=== PATIENT | male | born 1940 | race Caucasian/White ===

== ENCOUNTER → 2018-08-22 18:59 | Outpatient (REF) | payer MEDICARE, OTHER, SELFPAY ==
[2018-08-22 20:03] LABS: Alanine Aminotransferase 29 IU/L (21-72); Albumin 4.4 g/dL (3.5-5.0); Albumin Globulin Ratio 1.5 (1.0-2.8); Alkaline Phosphatase 61 U/L (38-126); Aspartate Aminotransferase 20 IU/L (17-59); Bilirubin Total 0.7 mg/dL (0.2-1.3); Blood Urea Nitrogen 17 mg/dL (9-20); Calcium 9.5 mg/dL (8.4-10.2); Carbon Dioxide 28 mmol/L (22-32); Estimated Glomerular Filt Rate > 60.0 mL/min (>60); Globulin 2.9 g/dL (1.7-4.1); Glucose 91 mg/dL (80-110); HEMOLYSIS < 15 (0-50); Total Protein 7.3 g/dL (6.3-8.2)
[2018-08-22 20:10] LABS: Add Manual Diff / Slide Review NO; Basophils Absolute Auto 0 /uL (0-100); Basophils Percent Auto 0.4 % (0-2); Eosinophils Absolute Auto 0 /uL (0-450); Eosinophils Percent Auto 1.2 % (2-4); Hematocrit 46.7 % (41-53); Hemoglobin 16.2 g/dL (13.5-17.5); Lymphocytes Absolute Auto 1100 /uL (1100-4500); Lymphocytes Percent Auto 33.8 % (25-40); Mean Corpuscular HGB Conc 34.8 % (30-36); Mean Corpuscular Hemoglobin 30.6 PG (26-34); Mean Corpuscular Volume 88.1 fL (80-100); Monocytes Absolute Auto 300 /uL (0-900); Monocytes Percent Auto 8.5 % (3-14); Neutrophils Absolute Auto 1800 /uL (1500-7000); Neutrophils Percent Auto 56.1 % (50-75); Platelet Count 147 X10^3/uL (150-400); Red Cell Distribution Width 14.4 % (11.6-14.8); White Blood Cell Count 3.2 X10^3/uL (4.5-11.0)
[2018-08-22 20:12] LABS: Chloride 100 mmol/L (98-107); Sodium 139 mmol/L (137-145)
[2018-08-22 20:36] LABS: Thyroid Stimulating Hormone 2.19 uIU/mL (0.47-4.68)
== END ==
LOC: LAB 18:59
PROVIDERS: Family Provider Family Medicine Geriatric Medicine; PCP Family Medicine Geriatric Medicine; Visit Provider Family Medicine Geriatric Medicine
DX: R53.82 Chronic fatigue, unspecified (principal)
CPT/HCPCS: 36415; 80053; 84443; 85025

== ENCOUNTER → 2018-12-01 09:51 | Outpatient (CLI) | payer MEDICARE, OTHER, SELFPAY ==
--- NOTE | 2018-12-01 10:45 | PM.TREADMILL ---
Cardiac Stress Test Report Referral & Results Date Patient Seen: 12/01/18 Requesting provider: Vickie Boston Indication: Dyspnea Rest ECG: Frequent PACs and PVCs Procedure Note: Today following both written and verbal informed consent, the patient was exercised according to a standard [facility] protocol. The patient exercised for a total of 9 minutes 0 seconds achieving a maximum heart rate of 127. Patient's maximum systolic blood pressure was 200. This was an estimated 10.1 MET's. Patient had frequent PACs and PVCs including ventricular couplets and triplets and runs lasting 5-10 seconds of ventricular bigeminy. These persisted throughout the monitoring period. They were asymptomatic. There was no obvious evidence of ischemia. There was some nonspecific ST-T segment flattening in lateral leads in early recovery the persisted. Functional aerobic impairment was off the scale but rate his exercise capacity to be equal that of an active 59-year-old Impression: Significant dysrhythmia as above. Suggest echocardiography. Patient did hold his beta-elizabeth for this test which may of had an influence on his dysrhythmia No clear evidence of ischemia. Nonspecific changes as above. Given his excellent exercise capacity overall this is a low risk study. Consideration for repeating this with perfusion imaging could be made if clinical concern warrants Please note: Actual ECG tracings can be found in the PACS system.
== END ==
PROVIDERS: Family Provider Family Medicine Geriatric Medicine; PCP Family Medicine Geriatric Medicine; Visit Provider Family Medicine Geriatric Medicine
DX: R06.00 Dyspnea, unspecified (principal); I49.3 Ventricular premature depolarization; I49.1 Atrial premature depolarization
CPT/HCPCS: 93016; 93017; 93018

== ENCOUNTER → 2020-08-28 13:25 | Outpatient (CLI) | payer MEDICARE, OTHER, SELFPAY ==
[2020-08-28 14:11] LABS: UR Morphine/Opiate cutoff 300 Negative (Negative); Ur Creatinine Normal (Normal); Ur Specific Gravity Normal (Normal); Urine Amphetamines Negative (Negative); Urine Barbiturates Negative (Negative); Urine Benzodiazepines Negative (Negative); Urine Cocaine Negative (Negative); Urine MDMA Negative (Negative); Urine Methadone Negative (Negative); Urine Methamphetamines Negative (Negative); Urine Oxycodone Negative (Negative); Urine Phencyclidine Negative (Negative); Urine Tetrahydrocannabinol Negative (Negative); Urine Tricyclic Antidepressant Positive (Negative); Urine pH Normal (Normal)
== END ==
PROVIDERS: Family Provider Family Medicine Geriatric Medicine; PCP Family Medicine Geriatric Medicine; Visit Provider Family Medicine Sleep Medicine
DX: G47.30 Sleep apnea, unspecified (principal); G47.411 Narcolepsy with cataplexy
CPT/HCPCS: 80305; 95805

== ENCOUNTER → 2022-09-16 09:46 | Outpatient (CLI) | payer MEDICARE, OTHER, SELFPAY ==
--- NOTE | 2022-09-22 08:13 | PM.PFT.1 ---
Pulmonary Function Test Referral & Results Date Patient Seen: 09/16/22 Results: The spirometry demonstrates an FVC of 2.81 L which is 70% of predicted. The FEV1 was measured at 1.93 L which is 68% of predicted. The FEV1/FVC ratio was 68 which is 96% of predicted. Following the administration of bronchodilator there was a 14% improvement in FEV1 and a 95% improvement in FEF 25-75%. Lung volumes show an SVC of 3.45 L which is 78% of predicted. The diffusing capacity was measured at 18.96 which is 58% of predicted. No hemoglobin value was provided, so no correction for potential anemia could be made, if appropriate. The maximum voluntary ventilation was minimally reduced Interpretation: This study demonstrates moderate obstructive lung disease based on reduction FEV1 although FEV1/FVC ratio is relatively preserved there is evidence of notable benefit after bronchodilator administration, particularly small airway flow as demonstrated by the improvement in the FEF 25-75% as above There is a [id number] reduction in lung volumes suggesting the presence of [id number] restrictive lung disease There is also a moderate reduction in diffusing capacity suggesting the presence of disease at the capillary alveolar level Altogether this is consistent with a diagnosis of COPD although clinical correlation is suggested
== END ==
PROVIDERS: Family Provider Family Medicine Geriatric Medicine; PCP Family Medicine Geriatric Medicine; Referring Provider Student in an Organized Health Care Education/Training Program; Visit Provider Student in an Organized Health Care Education/Training Program
DX: R06.09 Other forms of dyspnea (principal); J98.8 Other specified respiratory disorders
CPT/HCPCS: 94060; 94726; 94729